=== PATIENT | male | born 1985 | race Caucasian/White ===

== ENCOUNTER 2016-09-16 12:40 | Emergency (ER) | payer MEDICAID, OTHER ==
[~2016-09-16] VITALS: Ht 188 cm; Wt 146.0 kg
[2016-09-16 13:32] LABS: BLOOD UREA NITROGEN 12 mg/dL (7-18)
[2016-09-16 18:39] VITALS: BP 136/97
== END 2016-09-16 18:56 | disposition home or self-care (01) ==
LOC: ED 18:30
DX: I10 Essential (primary) hypertension (principal); F11.10 Opioid abuse, uncomplicated
CPT/HCPCS: 36415; 71010; 80048; 82040; 85025; 93005; 99285